=== PATIENT | female | born 1965 | race African-American/Black ===

== ENCOUNTER 2017-06-02 20:21 | Emergency (ER) | payer OTHER, SELFPAY ==
[2017-06-02] MEDS ORDERED: Ondansetron ODT 4 MG TAB ONE (21:03)
[2017-06-02 21:06] LABS: Bilirubin Negative (Negative); Blood, Urine Moderate (Negative); Glucose, Urine (Dipstick) Negative (Negative); Leukocyte Negative (Negative); Nitrite Negative (Negative); Protein, Urine (Dipstick) Trace mg/dL (Neg-Trace); Specific Gravity, Urine 1.025 (1.005-1.030); pH, Urine 6.5 (5.0-9.0)
[2017-06-02 21:08] LABS: Clarity Hazy (Clear)
[2017-06-02 21:09] LABS: Bacteria/HPF 2+ HPF (None Seen)
[2017-06-02 22:04] LABS: Hemoglobin 14.2 g/dL (12.0-16.0); MDiff Complete? YES; Mean Corpuscular HGB CONC 34.6 g/dL (32.0-36.0); Mean Corpuscular Hemoglobin 30.8 pg (27.0-31.0); Mean Corpuscular Volume 88.9 fl (81.0-99.0); Mean Platelet Volume 10.1 fL (7.4-10.4); Platelet Count 193 thou/uL (130-400); RBC Distribution Width 13.5 % (11.5-14.5); Red Blood Cell (RBC) Count 4.62 mill/uL (4.20-5.40); White Blood Cell (WBC) Count 10.1 thou/uL (4.8-10.8)
[2017-06-02 22:05] LABS: Anion Gap 14 mmol/L (10-20); BUN (Urea Nitrogen) 18 mg/dL (9.8-20.1); Calc. Creatinine Clearance 0 mL/min (70-130); Calcium 9.6 mg/dL (7.8-10.44); Carbon Dioxide 23 mmol/L (22-29); Chloride 107 mmol/L (98-107); Estimated GFR-MDRD 60; Glucose 163 mg/dL (70-105); Lymphocytes 16 % (21-51); Monocytes 6 % (0-10); Neutrophil 78 % (42-75); Potassium 3.9 mmol/L (3.5-5.1); Sodium 140 mmol/L (136-145)
[2017-06-02] MEDS ORDERED: Tamsulosin HCl 0.4 MG CAP ONE (22:06)
[2017-06-02] MEDS ORDERED: Promethazine HCl 25 MG/ML VIAL ONE (22:09)
[2017-06-02] MEDS ORDERED: Ketorolac Tromethamine 30 MG/ML VIAL ONE (22:09)
--- NOTE | 2017-06-02 23:36 | CT ---
NONCONTRAST CT ABDOMEN AND PELVIS 06/02/17 HISTORY: Left flank pain for two days. COMPARISON: None available. FINDINGS: The liver is slightly heterogeneous in appearance and enlarged measuring 18 cm. This heterogeneous a ppearance may be related to areas of fatty infiltration. There is mild left hydronephrosis with a 3 mm calculus seen in the region of the left UPJ. No additional renal or ureteral calculi are seen veronica aterally. There is mild left proximal periureteral inflammatory stranding present. The lung bases, spleen, pancreas, bilateral adrenal glands, and right kidney demonstrate a grossly n ormal nonenhanced CT appearance. The urinary bladder is completely decompressed. There is a 2.6 cm hypodense cystic structure in the right adnexal region probably related to small right ovarian cyst. The uterus is not visualized like ly related to prior hysterectomy. There is colonic diverticulosis. The appendix is normal in caliber. IMPRESSION: 1. Partially obstructing proximal left ureteral calculus, measuring 3 mm. 2. Mild hepatomegaly with heterogeneous appearance of the liver which may be related to areas o f fatty infiltration. 3. Hypodense cystic structure right adnexal region probably related to right ovarian cyst. 4. Colonic diverticulosis. POS: [facility]
== END 2017-06-02 22:32 | disposition home or self-care (01) ==
LOC: MADERS 20:21
DX: N13.2 Hydronephrosis with renal and ureteral calculous obstruction (principal)
CPT/HCPCS: 36415; 74176; 80048; 81003; 81015; 85025; 96372; J1885; J2270; J2550; Q0162